=== PATIENT | male | born 1975 | race Caucasian/White ===

== ENCOUNTER 2022-01-12 18:24 | Emergency (ER) | payer OTHER ==
[~2022-01-12] VITALS: Ht 175 cm; Wt 127.0 kg
[2022-01-12] MEDS ORDERED: ASPIRIN 81 MG CHEW (CHILDREN'S ASA) PO ONE (18:45)
[2022-01-12 18:55] LABS: BASOPHILS # (AUTO) 0.1 10^3/uL (0.0-0.1); BASOPHILS % (AUTO) 1 % (0-10); EOSINOPHILS # (AUTO) 0.2 10^3/uL (0.0-0.3); EOSINOPHILS % (AUTO) 2 % (0-10); HEMATOCRIT 48 % (40-54); HEMOGLOBIN 15.6 g/dL (13.3-17.7); LYMPHOCYTES # (AUTO) 4.2 10^3/uL (1.0-4.0); LYMPHOCYTES % (AUTO) 38 % (12-44); MEAN CORPUSCULAR HEMOGLOBIN 30 pg (25-34); MEAN CORPUSCULAR HGB CONC 33 g/dL (32-36); MEAN CORPUSCULAR VOLUME 90 fL (80-99); MONOCYTES # (AUTO) 1.1 10^3/uL (0.0-1.0); MONOCYTES % (AUTO) 10 % (0-12); NEUTROPHILS # (AUTO) 5.4 10^3/uL (1.8-7.8); NEUTROPHILS % (AUTO) 49 % (42-75); PLATELET COUNT 228 10^3/uL (130-400)
[2022-01-12 19:19] LABS: INR 1.7 (0.8-1.4); PROTHROMBIN TIME PATIENT 20.6 SEC (12.2-14.7)
--- NOTE | 2022-01-12 19:21 | Diagnostic Imaging Report ---
INDICATION: Chest pain. COMPARISON: None available. FINDINGS: The lungs appear clear without focal airspace opacities or consolidation. The lungs appear to be mildly hyperinflated. There are no findings of an effusion. There is no evidence of a pneumothorax. Heart size and mediastinal contours appear appropriate. Pulmonary vascularity appears within normal limits. There is no acute or suspicious osseous abnormality demonstrated. IMPRESSION: Mild hyperinflation without findings of pneumonia or edema. Correlate for smoking history or history of COPD. Dictated by: Dictated on workstation # [id number]
[2022-01-12 19:25] LABS: ALBUMIN 4.1 GM/DL (3.2-4.5); BILIRUBIN,TOTAL 0.4 MG/DL (0.1-1.0); CALCIUM 9.5 MG/DL (8.5-10.1); CREATININE SERUM 0.98 MG/DL (0.60-1.30); MAGNESIUM 1.9 MG/DL (1.6-2.4); TOTAL PROTEIN 7.8 GM/DL (6.4-8.2)
--- NOTE | 2022-01-12 19:45 | ED Chest Pain ---
General Chief Complaint: Chest Pain Stated Complaint: CHEST PAIN Nursing Triage Note: PT AMB TO RM 9 WITH C/O CHEST PAIN STARTED AT 1750. PT REPORTS HAS HX OF A-FIB Source: patient Exam Limitations: no limitations History of Present Illness Date Seen by Provider: Jan 12, 2022 Time Seen by Provider: 19:16 Initial Comments Patient to the ER by private conveyance with chief complaint of racing heart rate and chest pain radiating to his right shoulder with some numbness tingling going down his right arm. He has no history of coronary disease. He had a heart catheterization in [place] about 6 years ago and was told everything was okay. He has never had a heart attack. He is on warfarin for history of atrial fibrillation. He has had rapid ventricular response a few years ago. He converted spontaneously at 1833 as the ER nurse was performing an EKG. he is no longer having any chest pain. He is up-to-date on all of his medications. He is on a atorvastatin but does not have a history of hypertension and is not on antihypertensives. He takes metoprolol 25 ER daily. He smokes 2 packs cigarettes per day and has no significant familial history or personal medical history of coronary disease. He is diabetic not on insulin. Allergies and Home Medications Allergies Coded Allergies: No Allergy Information Available (Unverified , 01/12/22) Patient Home Medication List Home Medication List Reviewed: Yes Review of Systems Review of Systems Constitutional: No chills, No diaphoresis EENTM: No Blurred Vision, No Double Vision Respiratory: Denies Cough, Denies Orthopnea Cardiovascular: See HPI, Chest Pain, Irregular Heart Rate; Denies Li ghtheadedness Gastrointestinal: Denies Constipated, Denies Diarrhea, Denies Difficulty Swallowing, Denies Nausea Genitourinary: Denies Discharge, Denies Drainage Musculoskeletal: No back pain, No joint pain Skin: No pruritus, No rash Psychiatric/Neurological: Denies Headache, Denies Numbness All Other Systems Reviewed Negative Unless Noted: Yes Past Mhzeusn-Objevo-Snddhs Hx Patient Social History Tobacco Use?: Yes Tobacco type used: Cigarettes Smoking Status: Current Everyday Smoker Substance use?: No Alcohol Use?: No Pt feels they are or have been: No Immunizations Up To Date First/Initial COVID19 Vaccinat: 2020 Second COVID19 Vaccination Jean Marie: 2020 Past Medical History Surgery/Hospitalization HX: PMH; CHEST PAIN, AFIB, BULDGING DISC R ABD CYST REMOVAL Physical Exam Vital Signs Vital Signs - First Documented 01/12/22 18:27 Temp 37.0 Pulse 129 Resp 16 B/P (MAP) 150/99 (116) Pulse Ox 95 O2 Delivery Room Air Capillary Refill : Less Than 3 Seconds Height, Weight, BMI Height: '" Weight: lbs. oz. kg; 41.00 BMI Method: General Appearance: No Apparent Distress, WD/WN HEENT: PERRL/EOMI, Pharynx Normal, Moist Mucous Membranes Neck: Full Range of Motion, Normal Inspection Respiratory: Lungs Clear, Normal Breath Sounds, No Accessory Muscle Use, No Respiratory Distress Cardiovascular: Regular Rate, Rhythm, No Edema, Normal Peripheral Pulses Gastrointestinal: Normal Bowel Sounds, Non Tender, Soft Extremity: Normal Capillary Refill, Normal Inspection, No Pedal Edema Neurologic/Psychiatric: Alert, Oriented x3 Skin: Normal Color, Warm/Dry Progress/Results/Core Measures Results/Orders Lab Results Laboratory Tests Test 01/12/22 18:35 01/12/22 21:02 Range/Units White Blood Count 11.0 4.3-11.0 10^3/uL Red Blood Count 5.28 4.30-5.52 10^6/uL Hemoglobin 15.6 13.3-17.7 g/dL Hematocrit 48 40-54 % Mean Corpuscular Volume 90 80-99 fL Mean Corpuscular Hemoglobin 30 25-34 pg Mean Corpuscular Hemoglobin Concent 33 32-36 g/dL Red Cell Distribution Width 14.5 10.0-14.5 % Platelet Count 228 130-400 10^3/uL Mean Platelet Volume 11.0 9.0-12.2 fL Immature Granulocyte % (Auto) 1 % Neutrophils (%) (Auto) 49 42-75 % Lymphocytes (%) (Auto) 38 12-44 % Monocytes (%) (Auto) 10 0-12 % Eosinophils (%) (Auto) 2 0-10 % Basophils (%) (Auto) 1 0-10 % Neutrophils # (Auto) 5.4 1.8-7.8 10^3/uL Lymphocytes # (Auto) 4.2 H 1.0-4.0 10^3/uL Monocytes # (Auto) 1.1 H 0.0-1.0 10^3/uL Eosinophils # (Auto) 0.2 0.0-0.3 10^3/uL Basophils # (Auto) 0.1 0.0-0.1 10^3/uL Immature Granulocyte # (Auto) 0.1 0.0-0.1 10^3/uL Prothrombin Time 20.6 H 12.2-14.7 SEC INR Comment 1.7 H 0.8-1.4 Activated Partial Thromboplast Time 40 H 24-35 SEC Sodium Level 140 135-145 MMOL/L Potassium Level 4.0 3.6-5.0 MMOL/L Chloride Level 102 98-107 MMOL/L Carbon Dioxide Level 24 21-32 MMOL/L Anion Gap 14 5-14 MMOL/L Blood Urea Nitrogen 10 7-18 MG/DL Creatinine 0.98 0.60-1.30 MG/DL Estimat Glomerular Filtration Rate 95 BUN/Creatinine Ratio 10 Glucose Level 123 H 70-105 MG/DL Calcium Level 9.5 8.5-10.1 MG/DL Corrected Calcium 9.4 8.5-10.1 MG/DL Magnesium Level 1.9 1.6-2.4 MG/DL Total Bilirubin 0.4 0.1-1.0 MG/DL Aspartate Amino Transf (AST/SGOT) 21 5-34 U/L Alanine Aminotransferase (ALT/SGPT) 28 0-55 U/L Alkaline Phosphatase 100 40-136 U/L Myoglobin 51.5 10.0-92.0 NG/ML Troponin I < 0.028 < 0.028 <0.028 NG/ML Total Protein 7.8 6.4-8.2 GM/DL Albumin 4.1 3.2-4.5 GM/DL My Orders Orders - WENDY MOSER Continuous Ekg Monitoring (01/12/22 18:26) Ekg Tracing (01/12/22 18:26) Ekg Tracing (01/12/22 18:31) Cbc With Automated Diff (01/12/22 18:37) Magnesium (01/12/22 18:37) Chest 1 View, Ap/Pa Only (01/12/22 18:37) Comprehensive Metabolic Panel (01/12/22 18:37) Myoglobin Serum (01/12/22 18:37) Protime With Inr (01/12/22 18:37) Partial Thromboplastin Time (01/12/22 18:37) O2 (01/12/22 18:37) Monitor-Rhythm Ecg Trace Only (01/12/22 18:37) Lipid Panel (01/13/22 06:00) Ed Iv/Invasive Line Start (01/12/22 18:37) Troponin I Robert (01/12/22 18:37) Aspirin Chewable Tablet (Baby Aspirin Ch (01/12/22 18:45) Troponin I [place] (01/12/22 21:00) Medications Given in ED Current Medications Medications Dose Ordered Sig/Serena Route Start Time Stop Time Status Last Admin Dose Admin Aspirin 324 mg ONCE ONCE PO 01/12/22 18:45 01/12/22 18:46 DC 01/12/22 19:51 324 MG Vital Signs/I&O 01/12/22 18:27 Temp 37.0 Pulse 129 Resp 16 B/P (MAP) 150/99 (116) Pulse Ox 95 O2 Delivery Room Air Blood Pressure Mean: 116 Progress Progress Note : Time: 19:43 Progress Note 3 points HEART Pathway Score Low risk 0.9-1.7% 30-day MACE Repeat troponin at 3 hours and if negative, discharge home with outpatient follow-up. 2100 repeat troponin. No CP at this time. Initial ECG Impression Date: Jan 12, 2022 Initial ECG Impression Time: 18:34 Initial ECG Rate: 76 Initial ECG Rhythm: Normal Sinus Initial ECG Intervals: Normal Initial ECG Impression: Normal, Nonspecific Changes Initial ECG Comparisson: No Previous ECG Available Comment Normal sinus rhythm without clinically relevant ST elevation or depression. EKG : EKG Time: 18:34 Rate: 140 Rhythm: A Fib/Flutter Intervals: QT (390) ECG Comparisson: Changed ECG Impression: Atrial Fibrillation w/RVR Comment Atrial fibrillation with rapid ventricular response. No clinically relevant ST changes. Diagnostic Imaging Diagonstic Imaging: Xray Plain Films/CT/US/NM/MRI: chest Comments [facility] [place], [place] NAME: MARGARITA PIERSON [facility] REC#: [id number] PT STATUS: REG ER : 1975 PHYSICIAN: WENDY MOSER MD ADMIT DATE: 01/12/22/ER Signed Date of Exam:01/12/22 CHEST 1 VIEW, AP/PA ONLY INDICATION: Chest pain. COMPARISON: None available. FINDINGS: The lungs appear clear without focal airspace opacities or consolidation. The lungs appear to be mildly hyperinflated. There are no findings of an effusion. There is no evidence of a pneumothorax. Heart size and mediastinal contours appear appropriate. Pulmonary vascularity appears within normal limits. There is no acute or suspicious osseous abnormality demonstrated. IMPRESSION: Mild hyperinflation without findings of pneumonia or edema. Correlate for smoking history or history of COPD. Dictated by: Dictated on workstation # [id number] Dict: 01/12/221918 Trans: 01/12/221918 [facility] [id number] Interpreted by: SHON GOODWIN MD Electronically signed by: SHON GOODWIN MD 01/12/221918 Reviewed: Reviewed by Me Departure Impression Primary Impression: Atrial fibrillation with rapid ventricular response Disposition: HOME, SELF-CARE Condition: Stable Departure-Patient Inst. Decision time for Depature: 22:00 Referrals: MASTER COHN MD Patient Instructions: Atrial Fibrillation (DC), Chest Pain (DC) Add. Discharge Instructions: Keep your follow-up appointment with Dr. Cohn on 19 January. Return to the ER for intractable pain or racing heart rate that will not go away on its own. Continue taking her medications as prescribed All discharge instructions reviewed with patient and/or family. Voiced understanding. Work/School Note: Work Release Form Date Seen in the Emergency Department: Jan 12, 2022 Return to Work: Jan 15, 2022 Restrictions: No Restrictions Copy Copies To 1: MASTER COHN MD, TITUS J Jan 12, 2022 19:45
[2022-01-12 22:03] VITALS: BP 122/65
== END 2022-01-12 22:09 | disposition home or self-care (01) ==
LOC: ER 18:27
DX: I48.91 Unspecified atrial fibrillation (principal); F17.210 Nicotine dependence, cigarettes, uncomplicated; Z79.01 Long term (current) use of anticoagulants
CPT/HCPCS: 36415; 71045; 80053; 83735; 83874; 84484; 85025; 85610; 85730; 93005; 93041

== ENCOUNTER → 2022-01-28 | Outpatient (CLI) | payer OTHER | LOC: CARD 10:25 | PROVIDERS: ATTEND Internal Medicine Cardiovascular Disease | DX: Z51.11 Encounter for antineoplastic chemotherapy (principal); I11.9 Hypertensive heart disease without heart failure; I25.10 Atherosclerotic heart disease of native coronary artery without angina pectoris | CPT/HCPCS: 93306 ==

== ENCOUNTER → 2022-02-10 | Outpatient (CLI) | payer OTHER ==
[~2022-02-10] VITALS: Ht 175 cm; Wt 127.0 kg
[~2022-02-10] MED LIST: REGADENOSON 0.4 MG/5 ML SYR (LEXISCAN) IV ONE
[2022-02-10] MEDS: CATHETER FLUSH 10 ML SYR IVP PRN ×2 (07:04→09:25)
[2022-02-10 09:14] VITALS: BP 143/90
--- NOTE | 2022-02-10 11:25 | Cardiology Stress Test Report ---
Stress Test Report Date of Procedure/Referring: Date of Procedure: Feb 10, 2022 PCP No,Local Physician Admitting Physician Admitting Physician: Attending Physician: Master Cohn MD Indications: HTN Baseline Heart Rate: 69 Baseline Blood Pressure: Blood Pressure Systolic: 143 Blood Pressure Diastolic: 90 Baseline Vitals Vital Signs Date Time Temp Pulse Resp B/P (MAP) Pulse Ox O2 Delivery O2 Flow Rate FiO2 02/10/22 09:14 69 20 143/90 (107) 98 Room Air Baseline EKG: Baseline EKG: NSR Summary After explaining the procedure to the patient, he signed a consent and then brought to the stress nuclear laboratory. Patient received 0.4 mg Lexiscan for stress test, ECG, heart rate and blood pressure were monitored continuously. Resting and stress dose of radio tracer were injected, imaging was acquired and reviewed in short axis, horizontal long axis and vertical long axis views. TID: 0.99 SSS: 4 SDS: 4 EF: 63 1. Patient was unable to exercise beyond 5 minutes on standard Handy protocol, did not achieve his target heart rate, test was converted to Lexiscan Myoview stress test 2. Patient tolerated Lexiscan well 3. Diaphragmatic attenuation with typical male pattern. No significant ischemia or infarction on SPECT images 4. Normal left ventricular size, ejection fraction 63% Copy Copies To 1: [facility] MASTER COHN MD Feb 10, 2022 11:25
== END ==
LOC: CARD 07:30
PROVIDERS: ATTEND Internal Medicine Cardiovascular Disease
DX: I10 Essential (primary) hypertension (principal); I25.10 Atherosclerotic heart disease of native coronary artery without angina pectoris
CPT/HCPCS: 78452; 93017; A9502

== ENCOUNTER 2023-05-17 10:03 | Observation (INO) | payer OTHER ==
[~2023-05-17] VITALS: Ht 177.8 cm; Wt 148.3 kg
--- NOTE | 2023-05-17 10:32 | ED Chest Pain ---
General Chief Complaint: Cardiac/General Problems Stated Complaint: AFIB Source: patient Exam Limitations: no limitations History of Present Illness Date Seen by Provider: May 17, 2023 Time Seen by Provider: 10:16 Initial Comments This 48 year old gentleman presents to the ER via private vehicle as directed by Dr. No's office for treatment of A-fib with RVR. He has history of PAF and woke with tachycardia this morning about 0400. He describes brief chest tightness which is now gone. He takes flecainide religiously for rhythm control. According to his medication filling record, it appears he also was on metoprolol succinate recently. He does not believe he is taking that medication anymore. He is anticoagulated on Xarelto and has taken it religiously. He has not missed any doses in the last [address] Cohn is his primary fnps. Dr. No is his primary care provider. supportability engineer at this time shows heart rate in the 110s and 120s with atrial fibrillation. Allergies and Home Medications Allergies Coded Allergies: No Known Drug Allergies (Unverified , 05/17/23) Patient Home Medication List Home Medication List Reviewed: Yes Atorvastatin Calcium (Atorvastatin Calcium) 80 Mg Tablet, 80 MG PO HS, (R eported) Entered as Reported by: SIDNEY OLEARY on 05/17/231508 Last Action: Reviewed Baclofen (Baclofen) 20 Mg Tablet, 20 MG PO BID, (Reported) Entered as Reported by: SIDNEY OLEARY on 05/17/231508 Last Action: Reviewed Diphenhydramine HCl (Benadryl Allergy) 25 Mg Tablet, 25 MG PO HS, (Reported) Entered as Reported by: SIDNEY OLEARY on 05/17/231508 Last Action: Reviewed Dulaglutide (Trulicity) 3 Mg/0.5 Ml Pen.injctr, 3 MG SQ SAT, (Reported) Entered as Reported by: SIDNEY OLEARY on 05/17/231508 Last Action: Reviewed Famotidine (Famotidine) 20 Mg Tablet, 20 MG PO DAILY, (Reported) Entered as Reported by: SIDNEY OLEARY on 05/17/231508 Last Action: Reviewed Flecainide Acetate (Flecainide Acetate) 100 Mg Tablet, 100 MG PO BID Prescribed by: MASTER COHN on 05/18/23 0839 Insulin Glargine,Hum.rec.anlog (Lantus Solostar) 100 Unit/Ml (3 Ml) Insuln.pen, 22 UNITS SC HS, (Reported) Entered as Reported by: SIDNEY OLEARY on 05/17/231508 Last Action: Reviewed Lidocaine (Lidocaine 5% Patch) 5 % Adh..patch, 1 PATCH TD DAILY PRN for PAIN- BREAKTHROUGH, (Reported) Entered as Reported by: SIDNEY OLEARY on 05/17/231508 Last Action: Reviewed Metformin HCl (Metformin HCl) 500 Mg Tablet, 500 MG PO BID, (Reported) Entered as Reported by: SIDNEY OLEARY on 05/17/231508 Last Action: Reviewed Metoprolol Succinate (Metoprolol Succinate) 25 Mg Tab.er.24h, 25 MG PO DAILY, (Reported) Entered as Reported by: SIDNEY OLEARY on 05/17/231508 Last Action: Reviewed Pantoprazole Sodium (Pantoprazole Sodium) 40 Mg Tablet.dr, 40 MG PO HS, (Reported) Entered as Reported by: SIDNEY OLEARY on 05/17/231508 Last Action: Reviewed Rivaroxaban (Xarelto) 20 Mg Tablet, 20 MG PO HS, (Reported) Entered as Reported by: SIDNEY OLEARY on 05/17/231508 Last Action: Reviewed Sildenafil Citrate (Sildenafil Citrate) 100 Mg Tablet, 100 MG PO DAILY PRN for ED, (Reported) Entered as Reported by: SIDNEY OLEARY on 05/17/231508 Last Action: Reviewed [Golo Release] , 1 EA PO TIDWM, (Reported) Entered as Reported by: SIDNEY OLEARY on 05/17/231508 Last Action: Reviewed Discontinued Medications Flecainide Acetate (Flecainide Acetate) 50 Mg Tablet, 50 MG PO BID, (Reported) Entered as Reported by: SIDNEY OLEARY on 05/17/231508 Last Action: Reviewed Review of Systems Review of Systems Constitutional: no symptoms reported EENTM: No Symptoms Reported Respiratory: No Symptoms Reported Cardiovascular: See HPI Genitourinary: No Symptoms Reported Musculoskeletal: no symptoms reported Skin: no symptoms reported Psychiatric/Neurological: No Symptoms Reported Endocrine: No Symptoms Reported Hematologic/Lymphatic: No Symptoms Reported Past Tzfotvu-Vzzrws-Tomdhy Hx Patient Social History Tobacco Use?: Yes Tobacco type used: Cigarettes Smoking Status: Current Everyday Smoker Use of E-Cig and/or Vaping dev: No Substance use?: No Alcohol Use?: Yes Alcohol Frequency: Couple times a week (3 or 4 days/week, usually 1 drink) Immunizations Up To Date First/Initial COVID19 Vaccinat: 2020 Second COVID19 Vaccination Jean Marie: 2020 Past Medical History Surgery/Hospitalization HX: PMH; CHEST PAIN, AFIB, BULDGING DISC R ABD CYST REMOVAL Surgeries: Yes (Cyst removal) Respiratory: Yes (Tobaccoism) Cardiac: Yes Atrial Fibrillation (Paroxysmal) Neurological: No Genitourinary: No Gastrointestinal: No Musculoskeletal: No Endocrine: Yes (Extreme obesity) Diabetes, Non-Insulin dep Cancer: No Psychosocial: No Integumentary: No Physical Exam Vital Signs Vital Signs - First Documented 05/17/23 10:04 Temp 36.2 Pulse 138 Resp 18 B/P (MAP) 119/89 (99) Pulse Ox 96 O2 Delivery Room Air Capillary Refill : Height, Weight, BMI Height: '" Weight: lbs. oz. kg; 41.46 BMI Method: General Appearance: No Apparent Distress, WD/WN HEENT: PERRL/EOMI, Normal ENT Inspection Neck: Normal Inspection; No JVD Respiratory: Lungs Clear, Normal Breath Sounds, No Accessory Muscle Use Cardiovascular: No Edema, No Murmur, Irregularly Irregular Gastrointestinal: Non Tender, Soft Extremity: Normal Inspection, Non Tender Neurologic/Psychiatric: Alert, Oriented x3, No Motor/Sensory Deficits, Normal Mood/Affect Skin: Normal Color, Warm/Dry Progress/Results/Core Measures Results/Orders Lab Results Laboratory Tests Test 05/17/23 10:20 Range/Units White Blood Count 13.6 H 4.3-11.0 10^3/uL Red Blood Count 5.63 H 4.30-5.52 10^6/uL Hemoglobin 16.2 13.3-17.7 g/dL Hematocrit 50 40-54 % Mean Corpuscular Volume 89 80-99 fL Mean Corpuscular Hemoglobin 29 25-34 pg Mean Corpuscular Hemoglobin Concent 32 32-36 g/dL Red Cell Distribution Width 14.6 H 10.0-14.5 % Platelet Count 249 130-400 10^3/uL Mean Platelet Volume 10.9 9.0-12.2 fL Immature Granulocyte % (Auto) 0 % Neutrophils (%) (Auto) 61 42-75 % Lymphocytes (%) (Auto) 29 12-44 % Monocytes (%) (Auto) 8 0-12 % Eosinophils (%) (Auto) 1 0-10 % Basophils (%) (Auto) 1 0-10 % Neutrophils # (Auto) 8.3 H 1.8-7.8 10^3/uL Lymphocytes # (Auto) 4.0 1.0-4.0 10^3/uL Monocytes # (Auto) 1.1 H 0.0-1.0 10^3/uL Eosinophils # (Auto) 0.2 0.0-0.3 10^3/uL Basophils # (Auto) 0.1 0.0-0.1 10^3/uL Immature Granulocyte # (Auto) 0.1 0.0-0.1 10^3/uL Prothrombin Time 15.6 H 12.2-14.7 SEC INR Comment 1.2 0.8-1.4 Activated Partial Thromboplast Time 34 24-35 SEC Sodium Level 139 135-145 MMOL/L Potassium Level 4.5 3.6-5.0 MMOL/L Chloride Level 106 98-107 MMOL/L Carbon Dioxide Level 22 21-32 MMOL/L Anion Gap 11 5-14 MMOL/L Blood Urea Nitrogen 10 7-18 MG/DL Creatinine 0.84 0.60-1.30 MG/DL Estimat Glomerular Filtration Rate 106 BUN/Creatinine Ratio 12 Glucose Level 193 H 70-105 MG/DL Calcium Level 9.1 8.5-10.1 MG/DL Corrected Calcium 9.3 8.5-10.1 MG/DL Magnesium Level 1.9 1.6-2.4 MG/DL Total Bilirubin 0.6 0.1-1.0 MG/DL Aspartate Amino Transf (AST/SGOT) 31 5-34 U/L Alanine Aminotransferase (ALT/SGPT) 50 0-55 U/L Alkaline Phosphatase 105 40-136 U/L Myoglobin 37.3 10.0-92.0 NG/ML Troponin I < 0.028 <0.028 NG/ML Total Protein 7.2 6.4-8.2 GM/DL Albumin 3.8 3.2-4.5 GM/DL My Orders Orders - JOSE ALFONSO MD Ekg Tracing (05/17/23 10:08) Cbc And Automated Diff (05/17/23 10:26) Magnesium (05/17/23 10:26) Chest 1 View, Ap/Pa Only (05/17/23 10:26) Comprehensive Metabolic Panel (05/17/23 10:26) Myoglobin Serum (05/17/23 10:26) Protime With Inr (05/17/23 10:) Partial Thromboplastin Time (05/17/23 10:) O2 (05/17/23 10:26) Monitor-Rhythm Ecg Trace Only (05/17/23 10:) Lipid Panel (05/18/23 06:00) Ed Iv/Invasive Line Start (05/17/23 10:) Troponin I Robert (05/17/23 10:26) Ns Iv 500 Ml (Ns Iv 500 Ml) (05/17/23 11:00) Diltiazem Drip Pre-Mix (Diltiazem Drip P (05/17/23 11:00) Medications Given in ED Current Medications Medications Dose Ordered Sig/Serena Route Start Time Stop Time Status Last Admin Dose Admin Sodium Chloride 500 ml @ 0 mls/hr Q0M ONCE IV 05/17/23 11:00 05/17/23 11:01 DC 05/17/23 11:12 0 MLS/HR Vital Signs/I&O 05/17/23 05/17/23 10:04 11:12 Temp 36.2 Pulse 138 126 Resp 18 B/P (MAP) 119/89 (99) 111/84 Pulse Ox 96 O2 Delivery Room Air Progress Progress Note #1: Time: 10:31 Progress Note ECG reviewed and a-fib with RVR noted on my interpretation as below. Orders placed after receiving nurses report. Patient interviewed and examined at 1031. Progress Note #2: Time: 12:43 Progress Note Patient was interviewed and examined. He remained persistently in atrial fibrillation with RVR. Cardizem drip was started at 10 mg/h. Bolus was not administered due to his borderline blood pressure. A 500 mL normal saline bolus was administered. Labs were obtained, reviewed, and interpreted by me. WBC was 13.6. CBC was otherwise unremarkable. CMP P was unremarkable except for glucose of 193. Troponin was negative. Magnesium was normal. Chest x-ray revealed air trapping but no other acute abnormalities. Report was reviewed as noted below. I discussed this case with Dr. Cohn, fnps. He has requested admission on continued Cardizem drip. He would like the patient to be n.p.o. after midnight in preparation for cardioversion if he does not convert on his own with the Cardizem drip. Case was also discussed with Dr. Hudson, admitting hospitalist. CODE STATUS was reviewed with the patient, and he elects full code. Vital signs were stable at the time of admission. Heart rate was in the 70s and 80s but still in atrial fibrillation. Blood pressure was 113/72. Initial ECG Impression Date: May 17, 2023 Initial ECG Impression Time: 10:16 Initial ECG Rate: 121 Initial ECG Rhythm: A Fib/Flutter Initial ECG Impression: Atrial Fibrillation w/RVR Comment Atrial fibrillation with RVR. No diagnostic ST elevation or depression to suggest ischemia. Borderline left axis deviation. No other abnormal intervals. Diagnostic Imaging Diagonstic Imaging: Xray Plain Films/CT/US/NM/MRI: chest Comments NAME: MARGARITA PIERSON [facility] REC#: [id number] PT STATUS: REG ER : 1975 PHYSICIAN: JOSE ALFONSO MD ADMIT DATE: 05/17/23/ER Draft Date of Exam:05/17/23 CHEST 1 VIEW, AP/PA ONLY INDICATION: Chest pain. Single AP view of the chest is obtained with comparison made study of 01/12/2022. FINDINGS: Bilateral air trapping is stable. No pneumothorax or new infiltrate is identified. There is no significant pleural fluid. IMPRESSION: Bilateral air trapping without other evidence of acute abnormality. Dictated on workstation # [id number] Dict: 05/17/23 1059 Trans: 05/17/[address] [place] [address] [id number] Interpreted by: NEEMA FORRESTER MD Departure Communication (Admissions) Time/Spoke to Admitting Phy: 12:29 Dr. Hudson Time/Spoke to Consulting Phy: 12:00 Dr. Cohn Impression Primary Impression: Atrial fibrillation with rapid ventricular response Disposition: ADMITTED INPATIENT Condition: Improved Admissions Decision to Admit Reason: Admit from ER (General) Decision to Admit/Date: May 17, 2023 Time/Decision to Admit Time: 12:00 Departure-Patient Inst. Referrals: IKM NO DO (PCP/Family) Primary Care Physician Scripts Flecainide Acetate (Flecainide Acetate) 100 Mg Tablet 100 MG PO BID, #60 TAB 4 Refills Prov: MASTER COHN MD 05/18/23 Copy Copies To 1: KIM NO JOSHUA T MD May 17, 2023 10:32
[2023-05-17 10:33] LABS: BASOPHILS # (AUTO) 0.1 10^3/uL (0.0-0.1); BASOPHILS % (AUTO) 1 % (0-10); EOSINOPHILS # (AUTO) 0.2 10^3/uL (0.0-0.3); EOSINOPHILS % (AUTO) 1 % (0-10); HEMATOCRIT 50 % (40-54); HEMOGLOBIN 16.2 g/dL (13.3-17.7); LYMPHOCYTES % (AUTO) 29 % (12-44); MEAN CORPUSCULAR HEMOGLOBIN 29 pg (25-34); MEAN CORPUSCULAR HGB CONC 32 g/dL (32-36); MEAN CORPUSCULAR VOLUME 89 fL (80-99); MEAN PLATELET VOLUME 10.9 fL (9.0-12.2); MONOCYTES # (AUTO) 1.1 10^3/uL (0.0-1.0); MONOCYTES % (AUTO) 8 % (0-12); NEUTROPHILS # (AUTO) 8.3 10^3/uL (1.8-7.8); NEUTROPHILS % (AUTO) 61 % (42-75); PLATELET COUNT 249 10^3/uL (130-400); WHITE BLOOD COUNT 13.6 10^3/uL (4.3-11.0)
[2023-05-17 10:38] LABS: ALBUMIN 3.8 GM/DL (3.2-4.5); CHLORIDE 106 MMOL/L (98-107); POTASSIUM 4.5 MMOL/L (3.6-5.0); SODIUM 139 MMOL/L (135-145)
[2023-05-17 10:39] LABS: CALCIUM 9.1 MG/DL (8.5-10.1)
[2023-05-17 10:40] LABS: GLUCOSE 193 MG/DL (70-105)
[2023-05-17 10:41] LABS: INR 1.2 (0.8-1.4); PROTHROMBIN TIME PATIENT 15.6 SEC (12.2-14.7); TOTAL PROTEIN 7.2 GM/DL (6.4-8.2)
[2023-05-17 10:42] LABS: BILIRUBIN,TOTAL 0.6 MG/DL (0.1-1.0); CARBON DIOXIDE 22 MMOL/L (21-32)
[2023-05-17 10:44] LABS: ALKALINE PHOSPHATASE 105 U/L (40-136); CREATININE SERUM 0.84 MG/DL (0.60-1.30); GFR ESTIMATED 106
[2023-05-17 10:45] LABS: BUN/CREATININE RATIO 12
[2023-05-17 10:47] LABS: ALANINE AMINOTRANSFERASE 50 U/L (0-55); MAGNESIUM 1.9 MG/DL (1.6-2.4)
[2023-05-17] MEDS ORDERED: dilTIAZem DRIP PRE-MIX 125 ML IV SCH (11:00)
[2023-05-17] MEDS ORDERED: NS IV 500 ML 500 ML IV ONE (11:00)
--- NOTE | 2023-05-17 11:01 | Diagnostic Imaging Report ---
INDICATION: Chest pain. Single AP view of the chest is obtained with comparison made study of 01/12/2022. FINDINGS: Bilateral air trapping is stable. No pneumothorax or new infiltrate is identified. There is no significant pleural fluid. IMPRESSION: Bilateral air trapping without other evidence of acute abnormality. Dictated by: Dictated on workstation # [id number]
--- NOTE | 2023-05-17 12:35 | History & Physical ---
History of Present Illness HPI/Chief Complaint Chief complaint atrial fibrillation with rapid ventricular response HPI: This is a 48-year-old male clinic patient of Dr. No who has a past medical history of atrial fibrillation who presented to the ER with palpitations found to have atrial fibrillation with rapid ventricular response. Cardiology consulted and recommended diltiazem drip. Currently he is without chest pain. Source: patient Exam Limitations: no limitations Date Seen 05/17/23 Time Seen by a Provider: 13:00 Attending Physician Lisa No DO PCP Admitting Physician: Attending Physician: Referring Physician Date of Admission Home Medications & Allergies Home Medications Reviewed patient Home Medication Reconciliation performed by pharmacy medication reconciliations underwriting technician and/or nursing. Patients Allergies have been reviewed. Allergies Allergies Coded Allergies No Known Drug Allergies ([id number]/23) Past Mmgaxxg-Nxdfzl-Coenju Hx Past Med/Social Hx: Reviewed Nursing Past Med/Soc Hx, Reviewed and Corrections made Patient Social History Marrital Status: Employed/Student: employed Alcohol Use: Denies Use Smoking Status: Current Everyday Smoker Past Medical History Cardiac: Atrial Fibrillation, High Cholesterol, Hypertension Review of Systems Constitutional: see HPI Cardiovascular: palpitations Physical Exam Physical Exam Vital Signs Vital Signs - First Documented 05/17/23 10:04 Temp 36.2 Pulse 138 Resp 18 B/P (MAP) 119/89 (99) Pulse Ox 96 O2 Delivery Room Air Capillary Refill : Less Than 3 Seconds Height, Weight, BMI Height: '" Weight: lbs. oz. kg; 44.00 BMI Method: General Appearance: No Apparent Distress, WD/WN, Obese Eyes: Bilateral Eye Normal Inspection, Bilateral Eye PERRL HEENT: PERRL/EOMI, TMs Normal, Normal ENT Inspection, Pharynx Normal Neck: Full Range of Motion, Normal Inspection, Non Tender, Supple, Carotid Bruit Respiratory: Chest Non Tender, Lungs Clear, Normal Breath Sounds, No Accessory Muscle Use, No Respiratory Distress Cardiovascular: No Edema, No Gallop, No JVD, No Murmur, Normal Peripheral Pulses, Irregularly Irregular, Tachycardia Gastrointestinal: Normal Bowel Sounds, No Organomegaly, No Pulsatile Mass, Non Tender, Soft Back: Normal Inspection, No CVA Tenderness, No Vertebral Tenderness Extremity: Normal Capillary Refill, Normal Inspection, Normal Range of Motion, Non Tender, No Calf Tenderness, No Pedal Edema Neurologic/Psychiatric: Alert, Oriented x3, No Motor/Sensory Deficits, Normal Mood/Affect Skin: Normal Color, Warm/Dry Lymphatic: No Adenopathy Results Results/Procedures Labs Laboratory Tests 05/17/23 10:20 Patient resulted labs reviewed. Assessment/Plan Admission Diagnosis Assessment: Atrial fibrillation with rapid ventricular response requiring Cardizem drip Known history of atrial fibrillation Hypertension Obesity Plan: Cardizem drip ICU admit Cardiology consult appreciated Admission Status: Observation Clinical Quality Measures AMI/AHF: ASA po Prior to arrival: KELSEY Oneill DO May 17, 2023 12:35
--- NOTE | 2023-05-17 13:03 | Consultation-Cardiology ---
HPI-Cardiology Cardiology Consultation Date of Consultation 05/17/23 Date of Admission Time Seen by Provider: 13:00 Indication: Atrial fibrillation HPI 48 years old gentleman with paroxysmal atrial fibrillation, hypertension hyperlipidemia, started to have chest pain, went to his primary care physician and noted to be in atrial fibrillation with rapid ventricular response, went to the emergency room and started on Cardizem drip. On my evaluation he was still in atrial fibrillation heart rate is better controlled, feeling better Home Medications & Allergies Allergies: Coded Allergies: No Allergy Information Available (Unverified , 01/12/22) Home Medication List Reviewed: Yes [id number] Hx Patient Social History Smoking Status: Current Everyday Smoker Alcohol Use?: Yes Review of Systems-General Review of Systems Constitutional: no symptoms reported EENTM: see HPI, no symptoms reported Respiratory: see HPI; No cough; dyspnea on exertion; No hemoptysis, No orthopnea, No phlegm, No short of breath, No stridor, No wheezing, No other Cardiovascular: see HPI, chest pain; No edema, No Hx of Intervention; palpitations; No syncope, No vascular heart diseas, No other Gastrointestinal: no symptoms reported, see HPI Genitourinary: no symptoms reported, see HPI Musculoskeletal: no symptoms reported Skin: no symptoms reported Psychiatric/Neurological: No Symptoms Reported Reviewed Test Results Reviewed Test Results Lab Laboratory Tests Test 05/17/23 10:20 Range/Units White Blood Count 13.6 H 4.3-11.0 10^3/uL Red Blood Count 5.63 H 4.30-5.52 10^6/uL Hemoglobin 16.2 13.3-17.7 g/dL Hematocrit 50 40-54 % Mean Corpuscular Volume 89 80-99 fL Mean Corpuscular Hemoglobin 29 25-34 pg Mean Corpuscular Hemoglobin Concent 32 32-36 g/dL Red Cell Distribution Width 14.6 H 10.0-14.5 % Platelet Count 249 130-400 10^3/uL Mean Platelet Volume 10.9 9.0-12.2 fL Immature Granulocyte % (Auto) 0 % Neutrophils (%) (Auto) 61 42-75 % Lymphocytes (%) (Auto) 29 12-44 % Monocytes (%) (Auto) 8 0-12 % Eosinophils (%) (Auto) 1 0-10 % Basophils (%) (Auto) 1 0-10 % Neutrophils # (Auto) 8.3 H 1.8-7.8 10^3/uL Lymphocytes # (Auto) 4.0 1.0-4.0 10^3/uL Monocytes # (Auto) 1.1 H 0.0-1.0 10^3/uL Eosinophils # (Auto) 0.2 0.0-0.3 10^3/uL Basophils # (Auto) 0.1 0.0-0.1 10^3/uL Immature Granulocyte # (Auto) 0.1 0.0-0.1 10^3/uL Prothrombin Time 15.6 H 12.2-14.7 SEC INR Comment 1.2 0.8-1.4 Activated Partial Thromboplast Time 34 24-35 SEC Sodium Level 139 135-145 MMOL/L Potassium Level 4.5 3.6-5.0 MMOL/L Chloride Level 106 98-107 MMOL/L Carbon Dioxide Level 22 21-32 MMOL/L Anion Gap 11 5-14 MMOL/L Blood Urea Nitrogen 10 7-18 MG/DL Creatinine 0.84 0.60-1.30 MG/DL Estimat Glomerular Filtration Rate 106 BUN/Creatinine Ratio 12 Glucose Level 193 H 70-105 MG/DL Calcium Level 9.1 8.5-10.1 MG/DL Corrected Calcium 9.3 8.5-10.1 MG/DL Magnesium Level 1.9 1.6-2.4 MG/DL Total Bilirubin 0.6 0.1-1.0 MG/DL Aspartate Amino Transf (AST/SGOT) 31 5-34 U/L Alanine Aminotransferase (ALT/SGPT) 50 0-55 U/L Alkaline Phosphatase 105 40-136 U/L Myoglobin 37.3 10.0-92.0 NG/ML Troponin I < 0.028 <0.028 NG/ML Total Protein 7.2 6.4-8.2 GM/DL Albumin 3.8 3.2-4.5 GM/DL Physical Exam Physical Exam Vital Signs Vital Signs - First Documented 05/17/23 10:04 Temp 36.2 Pulse 138 Resp 18 B/P (MAP) 119/89 (99) Pulse Ox 96 O2 Delivery Room Air Capillary Refill : Less Than 3 Seconds Height, Weight, BMI Height: '" Weight: lbs. oz. kg; 44.00 BMI Method: General Appearance: No Apparent Distress, WD/WN Eyes: Bilateral Eye Normal Inspection, Bilateral Eye PERRL, Bilateral Eye EOMI HEENT: PERRL/EOMI, Normal ENT Inspection Neck: Normal Inspection; No JVD Respiratory: Lungs Clear, Normal Breath Sounds, No Accessory Muscle Use Cardiovascular: No Edema, No Murmur, Irregularly Irregular Gastrointestinal: Non Tender, Soft Back: Normal Inspection, No CVA Tenderness, No Vertebral Tenderness Extremity: Normal Inspection, Non Tender Neurologic/Psychiatric: Alert, Oriented x3, No Motor/Sensory Deficits, Normal Mood/Affect Skin: Normal Color, Warm/Dry Lymphatic: No Adenopathy A/P-Cardiology Admission Diagnosis Paroxysmal atrial fibrillation Chest pain Hypertension Hyperlipidemia Assessment/Plan Paroxysmal atrial fibrillation, maintained in sinus rhythm. Maintained on flecainide 50 mg twice daily Maintained on Xarelto, I am increasing flecainide to 100 mg twice daily and continue on Cardizem drip and consider cardioversion in the morning if he did not convert spontaneously. 2D Echo done January 2022 showing EF 50-55%, PA 30-35mmHg. Repeat 2D echo [id number] score 2, Was switched to Xarelto and tolerating it well. Chest pain, Probably secondary to tachycardia, had a stress test in 2021 showing no significant ischemia or infarction Cardiac enzymes are negative. Continue to monitor Hypertension, maintained on metoprolol 25 mg with good control. Continue to monitor Hyperlipidemia, maintained on Lipitor 40 mg daily, I will evaluate lipid profile Gastroesophageal reflux disease maintained on Protonix Obstructive sleep apnea, maintained on CPAP Tobaccoism, still an active smoker, educated on smoking cessation Obesity, BMI 44, we discussed weight loss and exercise History of COVID-19 infection in 2020, receiving full vaccination and one booster Nonobstructive carotid artery stenosis per carotid duplex done January 2022. Clinical Quality Measures AMI/AHF: ASA po Prior to arrival: MSATER Alberto MD May 17, 2023 13:03
[2023-05-17] MEDS ORDERED: FLECAINIDE 100 MG TABLET PO SCH (13:15)
[2023-05-17] MEDS ORDERED: dilTIAZem IV FOR DRIP 125 MG in NS (IVPB) 100 ML 100 ML IV SCH (13:45)
[2023-05-17] MEDS ORDERED: ACETAMINOPHEN 325 MG TABLET PO PRN (13:45)
[2023-05-17] MEDS ORDERED: oxyCODONE IMMEDIATE RELEASE 5 MG TABLET PO PRN (13:45)
[2023-05-17] MEDS ORDERED: NS IV 500 ML 500 ML IV PRN (13:45)
[2023-05-17] MEDS ORDERED: MILK OF MAGNESIA 400 MG/5 ML 30 ML UDC PO PRN (13:45)
[2023-05-17] MEDS ORDERED: diphenhydrAMINE 25 MG TABLET PO PRN (13:45)
[2023-05-17] MEDS ORDERED: MELATONIN 3 MG TABLET PO PRN (13:45)
[2023-05-17] MEDS ORDERED: BISACODYL 10 MG SUPPOSITORY PR PRN (13:45)
[2023-05-17] MEDS ORDERED: diphenhydrAMINE INJ 50 MG/ML VIAL IVP PRN (13:45)
[2023-05-17] MEDS ORDERED: ONDANSETRON 4 MG ORAL DISSOLVE TABLET PO PRN (13:45)
[2023-05-17] MEDS ORDERED: CALCIUM CARBONATE 500 MG CHEW TABLET PO PRN (13:45)
[2023-05-17] MEDS ORDERED: ONDANSETRON INJECTION 4 MG/2 ML (SDV) IV PRN (13:45)
[2023-05-17] MEDS ORDERED: LORazepam 0.5 MG TABLET PO PRN (13:45)
[2023-05-17] MEDS ORDERED: ANTACID SUSPENSION 30 ML UDC PO PRN (13:45)
[2023-05-17] MEDS ORDERED: HYDROmorphone INJECTION 2 MG/ML VIAL IV PRN (13:45)
[2023-05-17] MEDS ORDERED: LACTULOSE SYRUP 10GM/15ML 30ML UDC PO PRN (13:45)
[2023-05-17] MEDS ORDERED: dilTIAZem DRIP 125 MG/125 ML DRIP IV SCH (14:00)
[2023-05-17] MEDS ORDERED: FLU QUADRIvalent (6 months+) 60 mcg/0.5 ml 2023-2024 (FLUARIX) IM ONE (14:15)
[2023-05-17] MEDS: NS IV 1000 ML 1,000 ML IV SCH (14:18)
[2023-05-17] MEDS ORDERED: GOLO RELEASE PO (15:09)
[2023-05-17] MEDS ORDERED: ATOR80TA76 PO (15:09)
[2023-05-17] MEDS ORDERED: FAMO20TA5 PO (15:09)
[2023-05-17] MEDS ORDERED: INSU100I10 SC (15:09)
[2023-05-17] MEDS ORDERED: DIPH25TA65 PO (15:09)
[2023-05-17] MEDS ORDERED: FLEC50TA PO (15:09)
[2023-05-17] MEDS ORDERED: DULA3PEN SQ (15:09)
[2023-05-17] MEDS ORDERED: LIDO700A45 TD (15:09)
[2023-05-17] MEDS ORDERED: METF-397 PO (15:09)
[2023-05-17] MEDS ORDERED: MTP25TSR PO (15:09)
[2023-05-17] MEDS ORDERED: BACL20TA PO (15:09)
[2023-05-17] MEDS ORDERED: SILD100T67 PO (15:09)
[2023-05-17] MEDS ORDERED: PANT40TA52 PO (15:09)
[2023-05-17] MEDS ORDERED: RIVA20TA PO (15:09)
[2023-05-17] MEDS: inSUlin ASPART 1 UNIT/0.01 ML (PER UNIT) SC SCH ×2 (16:54→20:13)
[2023-05-17 16:57] VITALS: BP 131/103
[2023-05-17] MEDS ORDERED: RIVAROXABAN 20 MG TABLET PO SCH ×3 (17:00)
[2023-05-17] MEDS: FLECAINIDE 100 MG TABLET PO SCH (20:14)
[2023-05-17] MEDS: DOCUSATE SODIUM 100 MG CAPSULE PO SCH (20:14)
[2023-05-17] MEDS: SENNOSIDES 8.6 MG TABLET PO SCH (20:14)
[2023-05-18] MEDS: NS IV 1000 ML 1,000 ML IV SCH (03:14)
[2023-05-18 04:47] LABS: BASOPHILS # (AUTO) 0.1 10^3/uL (0.0-0.1); BASOPHILS % (AUTO) 1 % (0-10); EOSINOPHILS # (AUTO) 0.2 10^3/uL (0.0-0.3); EOSINOPHILS % (AUTO) 2 % (0-10); HEMATOCRIT 43 % (40-54); HEMOGLOBIN 13.9 g/dL (13.3-17.7); LYMPHOCYTES # (AUTO) 3.8 10^3/uL (1.0-4.0); LYMPHOCYTES % (AUTO) 30 % (12-44); MEAN CORPUSCULAR HEMOGLOBIN 29 pg (25-34); MEAN CORPUSCULAR HGB CONC 32 g/dL (32-36); MEAN CORPUSCULAR VOLUME 89 fL (80-99); MEAN PLATELET VOLUME 11.5 fL (9.0-12.2); MONOCYTES % (AUTO) 8 % (0-12); NEUTROPHILS # (AUTO) 7.7 10^3/uL (1.8-7.8); NEUTROPHILS % (AUTO) 60 % (42-75); PLATELET COUNT 205 10^3/uL (130-400); WHITE BLOOD COUNT 12.9 10^3/uL (4.3-11.0)
[2023-05-18 05:32] LABS: ALBUMIN 3.4 GM/DL (3.2-4.5); BILIRUBIN,TOTAL 0.7 MG/DL (0.1-1.0); CALCIUM 8.7 MG/DL (8.5-10.1); CREATININE SERUM 0.84 MG/DL (0.60-1.30); MAGNESIUM 1.7 MG/DL (1.6-2.4); PHOSPHORUS 3.7 MG/DL (2.3-4.7); POTASSIUM 4.2 MMOL/L (3.6-5.0); TOTAL PROTEIN 6.2 GM/DL (6.4-8.2)
[2023-05-18] MEDS: inSUlin ASPART 1 UNIT/0.01 ML (PER UNIT) SC SCH ×2 (05:45→11:14)
[2023-05-18] MEDS ORDERED: POTASSIUM CHLORIDE 20 MEQ TABLET PO SCH (06:00)
[2023-05-18] MEDS ORDERED: POTASSIUM CL 10MEQ/50ML IVPB 50 ML IV SCH (06:00)
[2023-05-18] MEDS ORDERED: MAGNESIUM 1 GM/100 ML IVPB 100 ML IV SCH (06:00)
[2023-05-18] MEDS: MAGNESIUM 1 GM/100 ML IVPB 100 ML IV SCH ×2 (06:06→07:55)
[2023-05-18] MEDS: SENNOSIDES 8.6 MG TABLET PO SCH (08:50)
[2023-05-18] MEDS: DOCUSATE SODIUM 100 MG CAPSULE PO SCH (08:50)
[2023-05-18] MEDS: FLECAINIDE 100 MG TABLET PO SCH (08:51)
--- NOTE | 2023-05-18 08:52 | Cardiology Progress Note ---
Subjective Date Seen by Provider: May 18, 2023 Time Seen by Provider: 08:51 Subjective/Events-last exam Patient was seen at bedside, he has converted on Cardizem drip to sinus rhythm and maintained sinus rhythm No new complaint. Objective-Cardiology Exam Last Set of Vital Signs Vital Signs 05/18/23 05/18/23 04:45 06:00 Temp 36.8 Pulse 75 Resp 22 B/P (MAP) 133/97 (110) Pulse Ox 90 O2 Delivery Room Air I&O Intake and Output 05/18/23 00:00 Intake Total 1880 ml Output Total 600 ml Balance 1280 ml Intake Oral 1380 ml IV Total 500 ml Output Urine Total 600 ml # Voids 2 General: Alert, Oriented X3, Cooperative HEENT: Atraumatic, PERRLA Neck: Supple, No JVD, No Thyromegaly Lungs: Clear to Auscultation, Normal Air Movement Heart: Regular Rate, Normal S1, Normal S2, No Murmurs Abdomen: Normal Bowel Sounds, Soft, No Tenderness, No Hepatosplenomegaly, No Masses Extremities: No Clubbing, No Cyanosis, No Edema, Normal Pulses, No Tenderness/Swelling Skin: No Rashes, No Breakdown, No Significant Lesion Neuro: Normal Gait, Normal Speech, Strength at 5/5 X4 Ext, Normal Tone, Sensation Intact Psych/Mental Status: Mental Status NL, Mood NL Results Lab Laboratory Tests 05/17/23 10:20 05/18/23 03:35 A/P-Cardiology Admission Diagnosis Paroxysmal atrial fibrillation Chest pain Hypertension Hyperlipidemia Assessment/Plan Paroxysmal atrial fibrillation, maintained in sinus rhythm. Converted to sinus rhythm on Cardizem drip I will increase flecainide to 100 mg twice daily Okay for discharge and follow-up as an outpatient 2D Echo done January 2022 showing EF 50-55%, PA 30-35mmHg. Repeat 2D echo was done on May 17, 2023 with ejection fraction 45 to 50%, mild LVH, PA pressure 15 to 20 mmHg [id number] score 2, Was switched to Xarelto and tolerating it well. Chest pain, Probably secondary to tachycardia, had a stress test in 2021 showing no significant ischemia or infarction Cardiac enzymes are negative. Continue to monitor Hypertension, maintained on metoprolol 25 mg with good control. Continue to monitor Hyperlipidemia, maintained on Lipitor 40 mg daily, I will evaluate lipid profile Gastroesophageal reflux disease maintained on Protonix Obstructive sleep apnea, maintained on CPAP Tobaccoism, still an active smoker, educated on smoking cessation Obesity, BMI 44, we discussed weight loss and exercise History of COVID-19 infection in 2020, receiving full vaccination and one booster Nonobstructive carotid artery stenosis per carotid duplex done January 2022. MASTER CONNOR MD May 18, 2023 08:52
[2023-05-18] MEDS ORDERED: FLEC100T PO (08:53)
[2023-05-18] MEDS ORDERED: PANTOPRAZOLE 40 MG TABLET PO SCH ×2 (09:00)
--- NOTE | 2023-05-18 10:50 | Progress Note ---
ILADAREK BALDWIN 05/18/23 1050: Subjective Date Seen by a Provider: May 18, 2023 Time Seen by a Provider: 10:10 Subjective/Events-last exam Joe Knapp is a 48 year old male with a PMH of PAF, HTN and HLD who presented himself to the ED on 05/17 at 1016H. He was sent by his PCP, Dr. No, for tx of A. fib. w/ RVR. The pt woke up yesterday with tachycardia and brief chest tightness with the tachy. The pt is a current 3ppd smoker for the past 4 years. Before this he was a 1ppd smoker for the past 30 years. 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 Dr. Cohn, cardiology, was consulted to see this patient. In the ED the pt was started on cardizem drip. CXR showed b/l air trapping with no significant pleural fluid. ECHO was performed and showed EF 45-50%, mild LVH, PA pressure 15-20mmHg. In January of 2022 the ECHO results were EF of 50-55%, PA pressure 30-35mmHg. The pt was admitted for PAF. Today, 05/08, the patient is in sinus rhythm. An EKG was performed to confirm. Dr. Cohn increased the pt's flecainide to 100mg BID. He is going to dc the pt and start follow ups as out patient. The patient is to continue taking his metoprolol and lipitor. The patient states that he feels better. Denies any CP, LUGO, or SOB. He states that he is okay with leaving. Review of Systems General: No Chills, No Night Sweats, No Fatigue, No Malaise HEENT: No Head Aches, No Visual Changes, No Eye Pain, No Ear Pain Pulmonary: No Dyspnea, No Cough Cardiovascular: No: Chest Pain, Palpitations, Lt Headedness Gastrointestinal: No: Nausea, Vomiting, Abdominal Pain Neurological: No: Weakness, Numbness, Incoordination, Change in speech, Confusion Objective Exam Last Set of Vital Signs Vital Signs Date Time Temp Pulse Resp B/P (MAP) Pulse Ox O2 Delivery O2 Flow Rate FiO2 05/18/23 10:00 71 18 139/96 (110) 92 Room Air 05/18/23 04:45 36.8 Capillary Refill : Less Than 3 Seconds I&O Intake and Output 05/17/23 23:59 Intake Total 1880 ml Output Total 600 ml Balance 1280 ml Intake Oral 1380 ml IV Total 500 ml Output Urine Total 600 ml # Voids 2 General: Alert, Oriented X3, Cooperative, No Acute Distress HEENT: PERRLA, EOMI Neck: No JVD Lungs: Normal Air Movement Heart: Regular Rate, No Murmurs Abdomen: Normal Bowel Sounds Extremities: No Clubbing, No Cyanosis Neuro: Normal Speech, Strength at 5/5 X4 Ext, Cranial Nerves 3-12 NL Psych/Mental Status: Mental Status NL, Mood NL Results Lab Laboratory Tests 05/17/23 16:23: Glucometer 208H 05/17/23 20:12: Glucometer 162H 05/18/23 03:35: White Blood Count 12.9H, Red Blood Count 4.84, Hemoglobin 13.9, Hematocrit 43, Mean Corpuscular Volume 89, Mean Corpuscular Hemoglobin 29, Mean Corpuscular Hemoglobin Concent 32, Red Cell Distribution Width 14.6H, Platelet Count 205, Mean Platelet Volume 11.5, Immature Granulocyte % (Auto) 1, Neutrophils (%) (Auto) 60, Lymphocytes (%) (Auto) 30, Monocytes (%) (Auto) 8, Eosinophils (%) (Auto) 2, Basophils (%) (Auto) 1, Neutrophils # (Auto) 7.7, Lymphocytes # (Auto) 3.8, Monocytes # (Auto) 1.0, Eosinophils # (Auto) 0.2, Basophils # (Auto) 0.1, I mmature Granulocyte # (Auto) 0.1, Sodium Level 139, Potassium Level 4.2, Chloride Level 105, Carbon Dioxide Level 25, Anion Gap 9, Blood Urea Nitrogen 9, Creatinine 0.84, Estimat Glomerular Filtration Rate 106, BUN/Creatinine Ratio 11, Glucose Level 142H, Calcium Level 8.7, Corrected Calcium 9.2, Phosphorus Level 3.7, Magnesium Level 1.7, Total Bilirubin 0.7, Aspartate Amino Transf (AST/SGOT) 30, Alanine Aminotransferase (ALT/SGPT) 45, Alkaline Phosphatase 77, Total Protein 6.2L, Albumin 3.4 Microbiology 05/17/23 MRSA Screen - Final, Complete MRSA not isolated Assessment/Plan Assessment/Plan Assess & Plan/Chief Complaint Assessment: Paroxysmal Atrial Fibrillation - in sinus rhythm HTN HLD GERD Tobacco User Plan: Paroxysmal Atrial Fibrillation - in sinus rhythm -Dr. Cohn increased pt's Flecainide to 100mg BID -continue taking Xarelto -pt is being dc today -f/u with cardiology will be scheduled HTN -continue Metoprolol 25mg qd HLD -continue Lipitor 40mg qd GERD -continue protonix Tobacco User -discussed tobacco cessation Clinical Quality Measures AMI/AHF: ASA po Prior to arrival: IRMA Oneill DO 05/18/232104: Supervisory-Addendum Brief Verification & Attestation Participated in pt care: history, MDM, physical Personally performed: exam, history, MDM, supervision of care Care discussed with: Medical Student Procedures: n/a Results interpretation: Verified all documentation Verification and Attestation of Medical Student E/M Service A medical student performed and documented this service in my presence. I reviewed and verified all information documented by the medical student and made modifications to such information, when appropriate. I personally performed the physical exam and medical decision making. Irma Israel, May 18, 2023,21:05 DAREK JAIN May 18, 2023 10:50 IRMA ISRAEL DO May 18, 2023 21:05
--- NOTE | 2023-05-18 11:19 | Discharge Summary ---
Diagnosis/Chief Complaint Date of Admission May 17, 2023 at 13:39 Date of Discharge Discharge Date: May 18, 2023 Discharge Diagnosis Atrial fibrillation with rapid ventricular response Discharge Summary Discharge Physical Examination Allergies: Coded Allergies: No Known Drug Allergies (Unverified , 05/17/23) Vitals & I&Os Vital Signs Date Time Temp Pulse Resp B/P (MAP) Pulse Ox O2 Delivery O2 Flow Rate FiO2 05/18/23 10:50 75 26 141/100 (114) 92 Room Air 05/18/23 08:00 36.9 General Appearance: Alert, Oriented X3, Cooperative Respiratory: Clear to Auscultation Cardiovascular: Regular Rate Hospital Course Was the Problem List Reviewed?: Yes Joe Knapp is a 48 year old male with a PMH of PAF, HTN and HLD who presented himself to the ED on 05/17 at 1016H. He was sent by his PCP, Dr. No, for tx of A. fib. w/ RVR. The pt woke up yesterday with tachycardia and brief chest tightness with the tachy. The pt is a current 3ppd smoker for the past 4 years. Before this he was a 1ppd smoker for the past 30 years. 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 Dr. Cohn, cardiology, was consulted to see this patient. In the ED the pt was started on cardizem drip. CXR showed b/l air trapping with no significant pleural fluid. ECHO was performed and showed EF 45-50%, mild LVH, PA pressure 15-20mmHg. In January of 2022 the ECHO results were EF of 50-55%, PA pressure 30-35mmHg. The pt was admitted for PAF. Today, 05/08, the patient is in sinus rhythm. An EKG was performed to confirm. Dr. Cohn increased the pt's flecainide to 100mg BID. He is going to dc the pt and start follow ups as out patient. The patient is to continue taking his metoprolol and lipitor. The patient states that he feels better. Denies any CP, LUGO, or SOB. He states that he is okay with leaving. Labs (last 24 hrs) Laboratory Tests 05/17/23 10:20: White Blood Count 13.6H, Red Blood Count 5.63H, Hemoglobin 16.2, Hematocrit 50, Mean Corpuscular Volume 89, Mean Corpuscular Hemoglobin 29, Mean Corpuscular Hemoglobin Concent 32, Red Cell Distribution Width 14.6H, Platelet Count 249, Mean Platelet Volume 10.9, Immature Granulocyte % (Auto) 0, Neutrophils (%) (Auto) 61, Lymphocytes (%) (Auto) 29, Monocytes (%) (Auto) 8, Eosinophils (%) (Auto) 1, Basophils (%) (Auto) 1, Neutrophils # (Auto) 8.3H, Lymphocytes # (Auto) 4.0, Monocytes # (Auto) 1.1H, Eosinophils # (Auto) 0.2, Basophils # (Auto) 0.1, Immature Granulocyte # (Auto) 0.1, Prothrombin Time 15.6H, INR Comment 1.2, Activated Partial Thromboplast Time 34, Sodium Level 139, Potassium Level 4.5, Chloride Level 106, Carbon Dioxide Level 22, Anion Gap 11, Blood Urea Nitrogen 10, Creatinine 0.84, Estimat Glomerular Filtration Rate 106, BUN/Creatinine Ratio 12, Glucose Level 193H, Calcium Level 9.1, Corrected Calcium 9.3, Magnesium Level 1.9, Total Bilirubin 0.6, Aspartate Amino Transf (AST/SGOT) 31, Alanine Aminotransferase (ALT/SGPT) 50, Alkaline Phosphatase 105, Myoglobin 37.3, Troponin I < 0.028, Total Protein 7.2, Albumin 3.8 05/17/23 16:23: Glucometer 208H 05/17/23 20:12: Glucometer 162H 05/18/23 03:35: White Blood Count 12.9H, Red Blood Count 4.84, Hemoglobin 13.9, Hematocrit 43, Mean Corpuscular Volume 89, Mean Corpuscular Hemoglobin 29, Mean Corpuscular Hemoglobin Concent 32, Red Cell Distribution Width 14.6H, Platelet Count 205, Mean Platelet Volume 11.5, Immature Granulocyte % (Auto) 1, Neutrophils (%) (Auto) 60, Lymphocytes (%) (Auto) 30, Monocytes (%) (Auto) 8, Eosinophils (%) ( Auto) 2, Basophils (%) (Auto) 1, Neutrophils # (Auto) 7.7, Lymphocytes # (Auto) 3.8, Monocytes # (Auto) 1.0, Eosinophils # (Auto) 0.2, Basophils # (Auto) 0.1, Immature Granulocyte # (Auto) 0.1, Sodium Level 139, Potassium Level 4.2, Chloride Level 105, Carbon Dioxide Level 25, Anion Gap 9, Blood Urea Nitrogen 9, Creatinine 0.84, Estimat Glomerular Filtration Rate 106, BUN/Creatinine Ratio 11, Glucose Level 142H, Calcium Level 8.7, Corrected Calcium 9.2, Magnesium Level 1.7, Total Bilirubin 0.7, Aspartate Amino Transf (AST/SGOT) 30, Alanine Aminotransferase (ALT/SGPT) 45, Alkaline Phosphatase 77, Total Protein 6.2L, Albumin 3.4, Phosphorus Level 3.7 05/18/23 10:45: Glucometer 207H Microbiology 05/17/23 MRSA Screen - Final, Complete MRSA not isolated Pending Labs Microbiology Date/Time Source Procedure Growth Status 05/17/23 13:50 Nasal MRSA Screen - Final MRSA not isolated Complete Laboratory Tests 05/17/23 10:20: White Blood Count 13.6, Red Blood Count 5.63, Hemoglobin 16.2, Hematocrit 50, Mean Corpuscular Volume 89, Mean Corpuscular Hemoglobin 29, Mean Corpuscular Hemoglobin Concent 32, Red Cell Distribution Width 14.6, Platelet Count 249, Mean Platelet Volume 10.9, Immature Granulocyte % (Auto) 0, Neutrophils (%) (Au to) 61, Lymphocytes (%) (Auto) 29, Monocytes (%) (Auto) 8, Eosinophils (%) (Auto) 1, Basophils (%) (Auto) 1, Neutrophils # (Auto) 8.3, Lymphocytes # (Auto) 4.0, Monocytes # (Auto) 1.1, Eosinophils # (Auto) 0.2, Basophils # (Auto) 0.1, Immature Granulocyte # (Auto) 0.1, Prothrombin Time 15.6, INR Comment 1.2, Activated Partial Thromboplast Time 34, Sodium Level 139, Potassium Level 4.5, Chloride Level 106, Carbon Dioxide Level 22, Anion Gap 11, Blood Urea Nitrogen 10, Creatinine 0.84, Estimat Glomerular Filtration Rate 106, BUN/Creatinine Ratio 12, Glucose Level 193, Calcium Level 9.1, Corrected Calcium 9.3, Magnesium Level 1.9, Total Bilirubin 0.6, Aspartate Amino Transf (AST/SGOT) 31, Alanine Aminotransferase (ALT/SGPT) 50, Alkaline Phosphatase 105, Myoglobin 37.3, Troponin I < 0.028, Total Protein 7.2, Albumin 3.8 05/17/23 16:23: Glucometer 208 05/17/23 20:12: Glucometer 162 05/18/23 03:35: White Blood Count 12.9, Red Blood Count 4.84, Hemoglobin 13.9, Hematocrit 43, Mean Corpuscular Volume 89, Mean Corpuscular Hemoglobin 29, Mean Corpuscular Hemoglobin Concent 32, Red Cell Distribution Width 14.6, Platelet Count 205, Mean Platelet Volume 11.5, Immature Granulocyte % (Auto) 1, Neutrophils (%) (A uto) 60, Lymphocytes (%) (Auto) 30, Monocytes (%) (Auto) 8, Eosinophils (%) (Auto) 2, Basophils (%) (Auto) 1, Neutrophils # (Auto) 7.7, Lymphocytes # (Auto) 3.8, Monocytes # (Auto) 1.0, Eosinophils # (Auto) 0.2, Basophils # (Auto) 0.1, Immature Granulocyte # (Auto) 0.1, Sodium Level 139, Potassium Level 4.2, Chloride Level 105, Carbon Dioxide Level 25, Anion Gap 9, Blood Urea Nitrogen 9, Creatinine 0.84, Estimat Glomerular Filtration Rate 106, BUN/Creatinine Ratio 11, Glucose Level 142, Calcium Level 8.7, Corrected Calcium 9.2, Magnesium Level 1.7, Total Bilirubin 0.7, Aspartate Amino Transf (AST/SGOT) 30, Alanine Aminotransferase (ALT/SGPT) 45, Alkaline Phosphatase 77, Total Protein 6.2, Albumin 3.4, Phosphorus Level 3.7 05/18/23 10:45: Glucometer 207 Discharge Home Medications: Active Scripts Active Flecainide Acetate 100 Mg Tablet 100 Mg PO BID Reported [Golo Release] 1 Ea PO TIDWM Benadryl Allergy (Diphenhydramine HCl) 25 Mg Tablet 25 Mg PO HS TAKES 2 (25MG) TABS Atorvastatin Calcium 80 Mg Tablet 80 Mg PO HS Pantoprazole Sodium 40 Mg Tablet.dr 40 Mg PO HS Sildenafil Citrate 100 Mg Tablet 100 Mg PO DAILY PRN Metoprolol Succinate 25 Mg Tab.er.24h 25 Mg PO DAILY Trulicity (Dulaglutide) 3 Mg/0.5 Ml Pen.injctr 3 Mg SQ SAT Famotidine 20 Mg Tablet 20 Mg PO DAILY Baclofen 20 Mg Tablet 20 Mg PO BID Lidocaine 5% Patch (Lidocaine) 5 % Adh..patch 1 Patch TD DAILY PRN APPLIES TO RIGHT SHOULDER Xarelto (Rivaroxaban) 20 Mg Tablet 20 Mg PO HS Lantus Solostar (Insulin Glargine,Hum.rec.anlog) 100 Unit/Ml (3 Ml) Insuln.pen 22 Units SC HS Metformin HCl 500 Mg Tablet 500 Mg PO BID Instructions to patient/family Please see electronic discharge instructions given to patient. Clinical Quality Measures AMI/AHF: ASA po Prior to arrival: KELSEY Oneill DO May 18, 2023 11:19
== END 2023-05-18 11:54 | disposition home or self-care (01) ==
LOC: EDUNIT# 10:03 → ER 10:06 → UNDOADMOB 13:39 → ICU 13:39 → UNDODISOB 05-18 11:54
PROVIDERS: ADMIT Internal Medicine; ATTEND Internal Medicine
DX: I48.0 Paroxysmal atrial fibrillation (principal); I10 Essential (primary) hypertension; E78.5 Hyperlipidemia, unspecified; K21.9 Gastro-esophageal reflux disease without esophagitis; G47.33 Obstructive sleep apnea (adult) (pediatric); E66.9 Obesity, unspecified; I65.29 Occlusion and stenosis of unspecified carotid artery; F17.210 Nicotine dependence, cigarettes, uncomplicated; Z79.01 Long term (current) use of anticoagulants; Z99.81 Dependence on supplemental oxygen; Z68.41 Body mass index [BMI] 40.0-44.9, adult
CPT/HCPCS: 71045; 80053 ×2; 82947 ×2; 83735 ×2; 83874; 84100; 84484; 85025 ×2; 85610; 85730; 87081; 93005 ×2; 93041; 96361 ×2; 96366; 96372 ×2; 96375; 96376; 99284; C8929; G0008; G0378; 36415; 90471; 90686; 93306